=== PATIENT | male | born 1960 | race Caucasian/White ===

== ENCOUNTER 2020-02-04 00:39 | Outpatient (CLI) | payer OTHER, SELFPAY ==
[2020-02-04 16:30] LABS: SARS-CoV-2 RNA PCR Positive
== END 2020-02-04 00:40 | disposition home or self-care (01) ==
LOC: ANHCOVIDDT 00:39
PROVIDERS: PCP Family Medicine; Visit Provider Internal Medicine Gastroenterology
DX: Z01.812 Encounter for preprocedural laboratory examination (principal); U07.1 COVID-19
CPT/HCPCS: 87635; C9803; U0003

== ENCOUNTER 2020-03-01 01:13 | Outpatient (CLI) | payer OTHER, SELFPAY ==
[2020-03-02 14:16] LABS: SARS-CoV-2 RNA PCR Negative
== END 2020-03-01 01:14 | disposition home or self-care (01) ==
LOC: ANHCOVIDDT 01:13
PROVIDERS: PCP Family Medicine; Visit Provider Internal Medicine Gastroenterology
DX: Z01.812 Encounter for preprocedural laboratory examination (principal); Z11.59 Encounter for screening for other viral diseases
CPT/HCPCS: 87635; C9803; U0003

== ENCOUNTER 2020-03-05 00:37 | Day surgery (SDC) | payer OTHER, SELFPAY ==
[2020-01-28 13:45] VITALS: BMI 28.5
--- NOTE | 2020-02-05 08:22 | SUR.PREOP ---
0821 called patient with Covid positive test results. Instructed patient to follow up with Primary care providers or go to nearest emergency room of his condition worsens. Patient complains of runny nose which he says is normal for him this time of year with his allergies. Instructed patient that his procedure is cancelled for tomorrow and to for him to follow up with Dr. Talley's office to reschedule in a couple of weeks when he is feeling better. I also mentioned that he would be getting a phone call from the Department of Public Health with further instructions. Patient voiced understanding.
--- NOTE | 2020-02-27 13:03 | PC.NURSE ---
PER PATIENT, NO CHANGE IN HEALTH HISTORY WITH THE EXCEPTION OF POSITIVE COVID, MEDICATIONS OR ALLERGIES SINCE LAST P.A.T. INTERVIEW ON 01/28/2020. NIMO SANDERS
[2020-03-05 07:17] VITALS: BP 111/60; PULSE 74; RESP 18; TEMP 36.6; O2SAT 98
[2020-03-05] MEDS: LACTATED RINGERS 1,000 ML 150 ML IV CONT (07:26)
--- NOTE | 2020-03-05 08:00 | WPDANESEPPF ---
Anes - Initial Pre Proc Eval Procedure: Operation Date: 03/05/20 08:30 Proposed Procedures p Screening Colonoscopy - Poncho Talley MD Date/Time: 03/05/20 08:00 Surgeon: Poncho Talley MD Pre Op Diagnosis: Neoplasm Screening and History of Colon Polyps Patient Data Age: 59 Gender: M Height: 5 ft 11 in Weight: 88.6 kg Last Vital Signs Temp 36.6 C 03/05/20 07:17 Pulse 74 03/05/20 07:17 Resp 18 03/05/20 07:17 BP 111/60 03/05/20 07:17 Pulse Ox 98 03/05/20 07:17 Allergies Allergy/AdvReac Type Severity Reaction Status Date / Time No Known Allergies Allergy Unknown Verified 03/05/20 07:16 Home Medications Medication Instructions Recorded Confirmed Type omeprazole 20 mg PO HS 01/28/20 02/27/20 History rosuvastatin 5 mg PO HS 01/28/20 02/27/20 History Patient hx anesthesia problems: none Family hx anesthesia problems: none PMFSH Past Medical History Medical History (Updated 03/05/20 @ 08:01 by Jacob Whitman MD) Hyperlipidemia Overweight Family History Family History Father Cerebrovascular accident Malignant neoplasm of prostate Mother Family history of heart disease in male family member before age 55 Other Hypertension Social History Social History Smoking packs per day: 0.5 Smoking cigarettes per day: 10.0 Years smoked: 10 Smoking pack-years: 5.00 Smoking status: Former smoker Tobacco type: cigarettes Smoking end date: 04/11/10 Alcohol intake: current Drinks per week: 6 Living arrangements: with family Gender identity (if verbalized by the patient): Male Spiritual care concerns: No Anes - Eval Final PreProcedure Day of Procedure 03/05/20 08:00 Patient weight: overweight Heart: regular rate and rhythm Lungs: clear to auscultation Airway: Mallampati scale class II Neurological: alert and oriented Last oral intake: >/= 8 hours ASA classification: II Emergent: no Anesthetic plan: proceed Anesthesia type and monitoring: general GIVS and standard monitoring Informed Consent: The patient's anesthetic plan and its attendant risks and benefits were discussed with the patient/family/POA. Questions were solicited and answers provided to the satisfaction of the patient/family/POA.
--- NOTE | 2020-03-05 08:09 | WPDGICN ---
Assessment and Plan Assessment and plan (1) History of colon polyps: Code(s): Z86.010 - Personal history of colonic polyps Status: Acute Assessment and Plan: Patient has a history of adenomatous colon polyp removed from the colon in 2014. Plan is for surveillance colonoscopy now and at 5 year intervals in the future. GI Consult Note Consult date/time: 03/05/20 08:09 HPI: Christiano Brar is a 59 year old male Presents for follow-up colonoscopy. Patient has a history of adenomatous colon polyps removed from the colon in 2014. He states that his current weight appetite bowel movements are normal. Patient denies abdominal pain. His bowel habits have been regular. He has had no recent weight loss. Family history is noncontributory. Review of Systems Review of Systems: All systems reviewed & are unremarkable except as noted in HPI and below PMFSH Past Medical History Medical History (Updated 03/05/20 @ 08:11 by Poncho Talley MD) Hyperlipidemia Overweight Family History Family History Father Cerebrovascular accident Malignant neoplasm of prostate Mother Family history of heart disease in male family member before age 55 Other Hypertension Social History Social History Smoking packs per day: 0.5 Smoking cigarettes per day: 10.0 Years smoked: 10 Smoking pack-years: 5.00 Smoking status: Former smoker Tobacco type: cigarettes Smoking end date: 04/11/10 Alcohol intake: current Drinks per week: 6 Living arrangements: with family Gender identity (if verbalized by the patient): Male Spiritual care concerns: No Meds Home Medications and Allergies Home Medications Medication Instructions Recorded Confirmed Type omeprazole 20 mg PO HS 01/28/20 02/27/20 History rosuvastatin 5 mg PO HS 01/28/20 02/27/20 History Allergies Allergy/AdvReac Type Severity Reaction Status Date / Time No Known Allergies Allergy Unknown Verified 03/05/20 07:16 Vital Signs Vital Signs - 24 hr 03/05/20 07:17 Temperature 97.8 F Pulse Rate 74 Respiratory Rate 18 Blood Pressure 111/60 Pulse Oximetry 98 Exam Narrative: Exam Narrative: Physical exam reveals patient to be alert. Vital signs stable. HEENT exam unremarkable. Lungs are clear to auscultation and percussion. Heart is without murmur or extra sounds. Abdominal exam bowel sounds are present soft nontender with no organomegaly. Digital external rectal exam is normal.
[2020-03-05 08:57] VITALS: BP 95/59; PULSE 67; RESP 20; O2SAT 99
[2020-03-05 09:07] VITALS: BP 94/59; PULSE 66; RESP 22; O2SAT 99
[2020-03-05 09:17] VITALS: BP 110/68; PULSE 67; RESP 18; O2SAT 99
== END 2020-03-05 09:28 | disposition home or self-care (01) ==
PROVIDERS: PCP Family Medicine; Visit Provider Internal Medicine Gastroenterology
PROC: 0DJD8ZZ Inspection of Lower Intestinal Tract, Via Natural or Artificial Opening Endoscopic (ICD-10-PCS; CPT 45378; principal; 2020-03-05 08:30)
DX: Z12.11 Encounter for screening for malignant neoplasm of colon (principal); D12.5 Benign neoplasm of sigmoid colon; K64.0 First degree hemorrhoids; E78.5 Hyperlipidemia, unspecified; Z87.891 Personal history of nicotine dependence
CPT/HCPCS: 45385; 88305; J2704; J7120

== ENCOUNTER 2025-01-31 00:38 | Day surgery (SDC) | payer MEDICARE, OTHER, SELFPAY ==
[2025-01-22 12:56] VITALS: BMI 29.9
--- OUTSIDE RECORDS SUMMARY | 2025-01-31 00:41 | XMS_ITS | Clinical Summary ---
Author Organization [facility] Address [address] [place] [id number] Care Team Providers Care Link Trainer Operator Name Role Phone None, Provider MD Primary Care Provider Unavaila ble Medications omeprazole (PRILOSEC) 20 MG capsule Take 1 capsule (20 mg total) by mouth daily. 10/26/2023 Active rosuvastatin (CRESTOR) 5 MG tablet 1 tablet (5 mg total). 10/26/2023 Active Active Problems No known active problems Family History Medical History Relation Comments Cancer Father prostate ca Heart Attack Father Hyperlipidemia Father pacemaker Mother Relation Status Comments Father Mother Social History Tobacco Use Types Packs/Day Years Used Date Smoking Tobacco: Former Cigarettes Passive Smoke Exposure: Past Smokeless Tobacco: Never Tobacco Cessation:Counseling Given: Not Answered Alcohol Use Standard Drinks/Week Comments Yes 0 (1 standard drink = 0.6 oz pur e alcohol) PHQ-2 Answer Date Recorded Patient Health Questionnaire-2 Score 0 01/09/2024 Sex and Gender Information Value Date Recorded Sex Assigned at Not on file Legal Sex Male 12:38 PM CDT Gender Identity Not on file Sexual Orientation Not on file Last Filed Vital Signs Vital Sign Reading Time Taken Comments Blood Pressure 131/81 01/09/2024 12:57 PM CDT Pulse 83 01/09/2024 12:57 PM CDT Temperature 36.5 C (97.7 F) 01/09/2024 12:57 PM CDT Respiratory Rate 20 01/09/2024 12:57 PM CDT Oxygen Saturation 98% 01/09/2024 12:57 PM CDT Inhaled Oxygen Concentration - - Weight 94.8 kg (209 lb) 01/09/2024 12:57 PM CDT Height 180.3 cm (5' 11) 01/09/2024 12:57 PM CDT Body Mass Index 29.15 01/09/2024 12:57 PM CDT Plan of Treatment Health Maintenance Due Date Last Done Comments Colorectal Cancer Screening Colonoscopy (10 Years) 1960 Hepatitis C 06/17/1977 DTaP, Tdap and Td Vaccines ( 1 - Tdap) 06/17/1978 Pneumococcal Vaccine: 50+ Ye ars (1 of 1 - PCV) 06/17/2009 Zoster Vaccines (1 of 2) 06/17/2009 PHQ-2 (Physician Native) 04/11/2024 01/09/2024 COVID-19 Vaccine (1 - 2023-2 5 season) 2024 Influenza Adult (#1) 2025 RSV Immunization or 60+ Years (1 - 1-dose 75+ series) 06/17/2034 Hepatitis A Vaccines Aged Out No long er eligible based on patient's age to complete this topic Meningococcal B Vaccine Aged Out No l onger eligible based on patient's age to complete this topic Meningococcal Vaccine Aged Out No samuel cecile eligible based on patient's age to complete this topic RSV Immunizations Under 20 Months Aged Out No longer eligible based on patient's age to complete this topic Insurance [facility] Care Teams Link Trainer Operator Relationship Specialty Start Date End Date None, Provider, MD PCP - General UNKNOWN PHYSICIAN SPECIALTY 01/09/24
[2025-01-31 06:12] VITALS: BP 130/93; PULSE 58; RESP 18; TEMP 36.3; O2SAT 100; BMI 28.0
[2025-01-31] MEDS: LACTATED RINGERS 1,000 ML 150 ML IV CONT (06:24)
--- NOTE | 2025-01-31 07:11 | WPDANESEPPF ---
Anes - Initial Pre Proc Eval Procedure: Operation Date: 01/31/25 07:30 Proposed Procedures p Screening Colonoscopy - Mario Leung MD Date/Time: 01/31/25 07:11 Surgeon: Mario Leung MD Pre Op Diagnosis: Personal Hx of adenomatous & serrated colon polyps Patient Data Age: 64 Gender: M Height: 1.83 m Weight: 93.9 kg Last Vital Signs Temp 36.3 C L 01/31/25 06:12 Pulse 58 L 01/31/25 06:12 Resp 18 01/31/25 06:12 BP 130/93 H 01/31/25 06:12 Pulse Ox 100 01/31/25 06:12 O2 Del Method Room Air 01/31/25 06:12 Allergies Allergy/AdvReac Type Severity Reaction Status Date / Time No Known Allergies Allergy Unknown Verified 01/31/25 06:16 Home Medications ?Medication ?Instructions ?Recorded ?Confirmed ?Type sildenafil 100 mg tablet 100 mg PO DAILY PRN sexual 02/04/23 01/22/25 Rx activity #30 tabs omeprazole 20 mg capsule,delayed See Rx Instructions .Route 01/18/25 01/31/25 Rx release .COMPLEX #90 caps rosuvastatin 5 mg tablet See Rx Instructions .Route 01/18/25 01/31/25 Rx .COMPLEX #90 tabs Patient hx anesthesia problems: none Family hx anesthesia problems: none Results Review: All pre-operative results and documents have been reviewed as part of the pre-operative evaluation. FOR[facility]LY [facility] Past Medical History Medical History Personal history of adenomatous and serrated colon polyps Allergic rhinitis GERD (gastroesophageal reflux disease) Hyperlipidemia Surgical History Surgical History History of laparoscopic cholecystectomy 09/29/2018 History of removal of cyst R axilla 12/21/2011 History of arthroscopy of left knee 04/02/2011 Family History Family History Father Cerebrovascular accident Malignant neoplasm of prostate Heart disease Mother Heart disease history pacemaker Social History Social History Smoking packs per day: 0.5 Smoking cigarettes per day: 10.0 Years smoked: 10 Smoking pack-years: 5.00 Smoking status: Former smoker Tobacco type: cigarettes Smoking end date: 04/11/10 Alcohol intake: current Drinks per week: 10 Substance use: never Substance use type: does not use Lack of Transportation: No Lack of Food: Never True Current Housing: I Have Housing Concerned About Future Housing: No Difficulty Paying Gas/Electric Bills: No Difficulty Paying for Meds: No Currently Unemployed: No Education: Bachelor's Degree Difficulty w/ Childcare or Family Care: No Living arrangements: with family Occupation/Education: retired Gender identity (if verbalized by the patient): Male Sexual Orientation (if Verbalized by the Patient): Straight or Heterosexual Spiritual care concerns: No Anes - Eval Final PreProcedure Day of Procedure 01/31/25 07:11 Patient weight: overweight Heart: regular rate and rhythm Lungs: clear to auscultation Airway: Mallampati scale class II Neurological: alert and oriented Last oral intake: >/= 8 hours ASA classification: II Emergent: no Anesthetic plan: proceed Anesthesia type and monitoring: general GIVS and standard monitoring Results Review: All pre-operative results and documents have been reviewed as part of the pre-operative evaluation. Informed Consent: The patient's anesthetic plan and its attendant risks and benefits were discussed with the patient/family/POA. Questions were solicited and answers provided to the satisfaction of the patient/family/POA.
--- NOTE | 2025-01-31 07:25 | PM.IMHP ---
H&P: HPI History of Present Illness Date/Time: 01/31/25 07:25 Chief Complaint: History of colon polyps Narrative: The patient has a history of colonic polyps, the last colonoscopy was 5 years ago. Review of Systems Review of Systems: All systems reviewed & are unremarkable except as noted in HPI and below PMFSH Past Medical History Medical History Personal history of adenomatous and serrated colon polyps Allergic rhinitis GERD (gastroesophageal reflux disease) Hyperlipidemia Surgical History Surgical History History of laparoscopic cholecystectomy 09/29/2018 History of removal of cyst R axilla 12/21/2011 History of arthroscopy of left knee 04/02/2011 Family History Family History Father Cerebrovascular accident Malignant neoplasm of prostate Heart disease Mother Heart disease history pacemaker Social History Social History Smoking packs per day: 0.5 Smoking cigarettes per day: 10.0 Years smoked: 10 Smoking pack-years: 5.00 Smoking status: Former smoker Tobacco type: cigarettes Smoking end date: 04/11/10 Alcohol intake: current Drinks per week: 10 Substance use: never Substance use type: does not use Lack of Transportation: No Lack of Food: Never True Current Housing: I Have Housing Concerned About Future Housing: No Difficulty Paying Gas/Electric Bills: No Difficulty Paying for Meds: No Currently Unemployed: No Education: Bachelor's Degree Difficulty w/ Childcare or Family Care: No Living arrangements: with family Occupation/Education: retired Gender identity (if verbalized by the patient): Male Sexual Orientation (if Verbalized by the Patient): Straight or Heterosexual Spiritual care concerns: No Meds Home Medications and Allergies Home Medications ?Medication ?Instructions ?Recorded ?Confirmed ?Type sildenafil 100 mg tablet 100 mg PO DAILY PRN sexual 02/04/23 01/22/25 Rx activity #30 tabs omeprazole 20 mg capsule,delayed See Rx Instructions .Route 01/18/25 01/31/25 Rx release .COMPLEX #90 caps rosuvastatin 5 mg tablet See Rx Instructions .Route 01/18/25 01/31/25 Rx .COMPLEX #90 tabs Allergies Allergy/AdvReac Type Severity Reaction Status Date / Time No Known Allergies Allergy Unknown Verified 01/31/25 06:16 Vital Signs Vital Signs - 24 hr 01/31/25 06:12 Temperature 97.3 F L Pulse Rate 58 L Respiratory Rate 18 Blood Pressure 130/93 H Pulse Oximetry 100 Oxygen Delivery Room Air Exam Const: General: cooperative and healthy appearing Resp: Effort & Inspection: normal respiratory effort and able to speak in complete sentences Auscultation: clear to auscultation bilaterally Cardio: Rate: regular rate Rhythm: regular rhythm GI: Inspection: normal to inspection GI Palp: No No hepatosplenomegaly present Auscultation: normal bowel sounds Rectal Exam: deferred Skin: General skin exam: normal color Psych: Appearance: grossly normal Mental Status: mental status grossly normal Assessment and Plan Assessment and plan (1) Personal history of adenomatous and serrated colon polyps: Code(s): Z86.0101 - Personal history of adenomatous and serrated colon polyps Status: Acute Assessment and Plan: The patient is deemed a good candidate for the procedure. Consent signed. Will proceed.
[2025-01-31] MEDS: SIMETHICONE ORAL SUSPENSION 20 MG/0.3 ML 30 ML BOTTLE 0.6 ML IRRIGATION (07:34)
--- NOTE | 2025-01-31 07:40 | S_PTH ---
PATIENT: Christiano Brar LOC: [facility] U#:[id number] AGE/SX: 64/M ROOM: RE01/31/[address]: Mario Leung MD : 1960 BED: DIS: 01/31/2025 SPEC #: [id number] RECD: 01/31/25 08:51 STATUS: CHECO REQ #: [id number] EZIO: 01/31/25 07:[address]: Mario Leung DEPT: [facility] Surgical RECD BY: Korin Wong MLT, ([facility]) ENTERED: 01/31/25 08:52 SP TYPE: Surgical OTHR DR: Flex Davila MD Tissues: A - Colon Polypectomy B - Colon Polypectomy Procedures: Hematoxylin and Eosin Stain Gross and Microscopic Level 4
[2025-01-31 07:46] VITALS: BP 120/72; PULSE 60; RESP 24; O2SAT 100
[2025-01-31 07:56] VITALS: BP 121/67; PULSE 63; RESP 23; O2SAT 100
[2025-01-31 08:06] VITALS: BP 125/76; PULSE 60; RESP 21; O2SAT 100
== END 2025-01-31 08:09 | disposition home or self-care (01) ==
PROVIDERS: PCP Family Medicine; Visit Provider Internal Medicine Gastroenterology
PROC: 0DJD8ZZ Inspection of Lower Intestinal Tract, Via Natural or Artificial Opening Endoscopic (ICD-10-PCS; CPT 45378; principal; 2025-01-31 07:30)
DX: Z12.11 Encounter for screening for malignant neoplasm of colon (principal); D12.2 Benign neoplasm of ascending colon; D12.5 Benign neoplasm of sigmoid colon; K64.8 Other hemorrhoids; K57.30 Diverticulosis of large intestine without perforation or abscess without bleeding; E78.5 Hyperlipidemia, unspecified; K21.9 Gastro-esophageal reflux disease without esophagitis; Z98.890 Other specified postprocedural states; Z90.49 Acquired absence of other specified parts of digestive tract; Z87.891 Personal history of nicotine dependence; Z80.42 Family history of malignant neoplasm of prostate; Z82.49 Family history of ischemic heart disease and other diseases of the circulatory system
CPT/HCPCS: 45385; 88305; J2704; J7120